=== PATIENT | male | born 1985 | race Caucasian/White ===

== ENCOUNTER 2021-03-01 22:56 | Emergency (ER) | payer OTHER, SELFPAY ==
[2021-03-01 23:02] VITALS: BP 114/71; PULSE 96; RESP 20; TEMP 36.7; O2SAT 96
--- NOTE | 2021-03-01 23:16 | ED.GENADULT ---
HPI - General Adult General Chief complaint: Unspecified Stated complaint: wants a covid test Time Seen by Provider: 03/01/21 23:16 History of Present Illness HPI narrative: Fatigue, body aches, chills, headache, sore throat for the past 3 days. Took motrin and he is feeling better. Originally tachycardic and given fluids per EMS. Vitals normal on arrival. He is concerned that he may have COVID-19. No known exposure. Related Data Allergies Allergy/AdvReac Type Severity Reaction Status Date / Time paroxetine Allergy Unknown Confusion Verified 03/13/17 17:50 Review of Systems Review of Systems: All systems reviewed & are unremarkable except as noted in HPI and below Constitutional: Constitutional: Reports as per HPI ENT: Reports as per HPI Cardiovascular: Cardiovascular: Denies chest pain Respiratory: Respiratory: Reports dyspnea Gastrointestinal: Gastrointestinal: Denies nausea and Denies vomiting Genitourinary: Genitourinary: Reports no additional male genitourinary complaints Musculoskeletal: Musculoskeletal: Reports back pain and Reports myalgias Neurologic: Denies weakness [facility] Past Medical History Medical History (Updated 03/03/21 @ 00:00 by Ginny Magallanes) Schizophrenia Social History Social History (Updated 03/01/21 @ 23:23 by Link Torres MD) Gender identity (if verbalized by the patient): Male Exam Const: General: healthy appearing, no acute distress and alert Orientation/consciousness: patient oriented x3 HENMT: Head: normal to inspection Ears: external ears normal and TM's normal bilaterally General nose exam: Normal external nose present Face and sinus: normal facial exam Throat: posterior oropharynx abnormal erythema (minimal) Neck: Neck: normal visual inspection and no lymphadenopathy Resp: Effort & Inspection: normal respiratory effort and able to speak in complete sentences Auscultation: clear to auscultation bilaterally Cardio: Rate: regular rate Rhythm: regular rhythm GI: Inspection: normal to inspection GI Palp: Yes Soft to palpation and No Tenderness to palpation present (GI) Skin: General skin exam: normal color Neuro: General: patient oriented x3 Speech: normal speech Extrem: General: normal to inspection Course Vital Signs Vital signs: Vital Signs Temperature 36.7 C 03/01/21 23:02 Pulse Rate 96 03/01/21 23:02 Respiratory Rate 20 03/01/21 23:02 Blood Pressure 114/71 03/01/21 23:02 Pulse Oximetry 96 03/01/21 23:02 Temperature 36.7 C 03/01/21 23:02 Pulse Rate 97 03/02/21 00:15 Respiratory Rate 16 03/02/21 00:15 Blood Pressure 113/73 03/02/21 00:15 Pulse Oximetry 97 03/02/21 00:15 Medical Decision Making MDM Narrative Medical decision making narrative: Normal vitals, no SOB or other concerning symptoms. Will test for COVID and strep. Will treat as indicated. Differential Diagnosis Differential Diagnosis: Strep, COVID, URI, allergies, other Medical Records Medical records reviewed: Yes I reviewed the external patient's medical records. Vital Signs Vital Signs: Vital Signs Temperature 36.7 C 03/01/21 23:02 Pulse Rate 96 03/01/21 23:02 Respiratory Rate 20 03/01/21 23:02 Blood Pressure 114/71 03/01/21 23:02 Pulse Oximetry 96 03/01/21 23:02 Temperature 36.7 C 03/01/21 23:02 Pulse Rate 97 03/02/21 00:15 Respiratory Rate 16 03/02/21 00:15 Blood Pressure 113/73 03/02/21 00:15 Pulse Oximetry 97 03/02/21 00:15 Lab Data Labs: Lab Results 03/01/21 Range/Units 23:54 SARS-CoV-2 RNA (RT-PCR) Negative Discharge Plan Discharge Clinical Impression: URI, acute Patient Disposition: Home, Self-Care Condition: Stable Instructions: Upper Respiratory Infection (ED) Follow-up/Referrals: Reji Holt MD [Physician] - PHYSICIAN,[employer] PL[employer]ER SET UP OPERATOR [Primary Care Provider] -
[2021-03-02 00:15] VITALS: BP 113/73; PULSE 97; RESP 16; O2SAT 97
[2021-03-02 17:43] LABS: SARS-CoV-2 RNA PCR Negative
== END 2021-03-02 00:15 | disposition home or self-care (01) ==
PROVIDERS: Emergency Provider Emergency Medicine
DX: Z20.822 Contact with and (suspected) exposure to COVID-19 (principal); J06.9 Acute upper respiratory infection, unspecified
CPT/HCPCS: 87081; 87880; 99283; C9803; U0003; U0005